=== PATIENT | male | born 2000 | race Caucasian/White ===

== ENCOUNTER 2020-04-15 17:04 | Emergency (ER) | payer OTHER ==
[~2020-04-15] VITALS: Ht 175.3 cm; Wt 85.0 kg
[2020-04-15 18:15] LABS: BASOPHILS % 0.3 % (0.0-2.0); HEMOGLOBIN. 13.5 g/dL (14.0-18.0); LYMPHOCYTES % 17.5 % (20.0-50.0); MEAN CORPUSCULAR HEMOGLOBIN 27.6 pg (28.0-32.0); MEAN CORPUSCULAR VOLUME 81.7 fL (80.0-94.0); MEAN PLATELET VOLUME 7.4 fl (7.4-10.4); MONOCYTES % 8.1 % (2.0-8.0); NEUTROPHILS % 73.1 % (40.0-76.0); PLATELET 347 x1000/uL (130-400); RED BLOOD CELL COUNT 4.89 mill/uL (4.7-6.1); RED CELL DISTRIBUTION WIDTH 13.4 % (11.6-14.6)
[2020-04-15 18:23] LABS: CHLORIDE 109 mEq/L (98-107)
[2020-04-15 18:24] LABS: INR 0.9; PROTHROMBIN TIME 9.9 sec (9.6-11.0)
[2020-04-15 18:24] LABS: CLARITY URINE CLEAR (CLEAR); COLOR URINE YELLOW (YELLOW); KETONES URINE TRACE (NEGATIVE); LEUKOCYTE ESTERASE URINE NEGATIVE (NEGATIVE); NITRITE URINE NEGATIVE (NEGATIVE); OCCULT BLOOD URINE NEGATIVE (NEGATIVE); PH URINE 6.5 (4.5-8.0); PROTEIN URINE TRACE (NEGATIVE); SPECIFIC GRAVITY URINE 1.029 (1.005-1.030)
[2020-04-15 18:27] LABS: ETHANOL BLOOD < 10 mg/dL
[2020-04-15 18:54] LABS: *AMPHETAMINES SCREEN URINE NEGATIVE (NEGATIVE); *BARBITURATES SCREEN URINE NEGATIVE (NEGATIVE); *BENZODIAZEPINES SCREEN URINE NEGATIVE (NEGATIVE)
[2020-04-15 18:55] LABS: *COCAINE SCREEN URINE NEGATIVE (NEGATIVE); CANNABINOID URINE SCREEN NEGATIVE (NEGATIVE); METHADONE URINE SCREEN NEGATIVE (NEGATIVE); OPIATES URINE SCREEN NEGATIVE (NEGATIVE); PHENCYCLIDINE URINE SCREEN NEGATIVE (NEGATIVE)
[2020-04-15] MEDS ORDERED: IBUPROFEN 600MG TABLET PO SCH (20:30)
[2020-04-15] MEDS ORDERED: IBUP-2029 MT (20:32)
[2020-04-15] MEDS ORDERED: IOHEXOL-300 50 ML BOTTLE IV ONE (20:45)
[2020-04-15] MEDS ORDERED: IOHEXOL-300 100 ML BOTTLE ONE (20:45)
[2020-04-15 20:50] VITALS: BP 130/80
== END 2020-04-15 20:50 | disposition home or self-care (01) ==
LOC: ER 17:04
DX: S13.4XXA Sprain of ligaments of cervical spine, initial encounter (principal); R10.9 Unspecified abdominal pain; R55 Syncope and collapse; Z00.00 Encounter for general adult medical examination without abnormal findings; V43.52XA Car driver injured in collision with other type car in traffic accident, initial encounter; Y93.89 Activity, other specified; Y92.89 Other specified places as the place of occurrence of the external cause; Y99.8 Other external cause status
CPT/HCPCS: 36415; 70450; 74177; 80053; 80305; 80320; 81003; 83690; 85025; 85610; 93005; 99285; Q9967; Z7610; G0480